=== PATIENT | female | born 1960 ===

== ENCOUNTER 2017-10-23 22:23 | Emergency (ER) | payer BC ==
[2017-10-23 22:24] VITALS: BMI 26.9
[2017-10-23 22:36] VITALS: TEMP 98.1; O2SAT 100
[2017-10-23 22:48] VITALS: BP 148/79; PULSE 82; RESP 20
--- NOTE | 2017-10-23 22:49 | C.PDOC ---
History Of Present Illness 57yo female, presents to ED for evaluation of acute on chronic neck and trapezius pain. She also reports feeling anxious and "scared" due to the pain. Patient states she took Motrin for her pain with relief of symptoms. She denies any chest pain, shortness of breath, and offers no other complaints. Time Seen by Provider: 10/23/17 22:43 Chief Complaint (Nursing): Chest Pain History Per: Patient Onset/Duration Of Symptoms: Days Current Symptoms Are (Timing): Still Present Quality: "Pain" Past Medical History Reviewed: Historical Data, Nursing Documentation, Vital Signs Vital Signs: Last Vital Signs Temp 98.1 F 10/23/17 22:28 Pulse 82 10/23/17 22:47 Resp 20 10/23/17 22:47 BP 148/79 10/23/17 22:47 Pulse Ox 100 10/23/17 22:49 - Medical History PMH: Arthritis (cervical area), Asthma, HTN Surgical History: No Surg Hx Family History: States: No Known Family Hx - Social History Hx Alcohol Use: No Hx Substance Use: No - Immunization History Hx Influenza Vaccination: No Hx Pneumococcal Vaccination: No Review Of Systems Except As Marked, All Systems Reviewed And Found Negative. Constitutional: Negative for: Fever, Chills Cardiovascular: Positive for: Other (neck and trapezius pain). Negative for: Chest Pain Respiratory: Negative for: Shortness of Breath Physical Exam - Physical Exam Appears: Non-toxic, No Acute Distress Skin: Warm, Dry Head: Atraumatic, Normacephalic Eye(s): bilateral: Normal Inspection, PERRL, EOMI Neck: Normal ROM, Supple Chest: Symmetrical Cardiovascular: Rhythm Regular Respiratory: Normal Breath Sounds, No Wheezing Gastrointestinal/Abdominal: Soft Back: Normal Inspection, Other (bilateral trapezius tenderness) Extremity: Normal ROM Neurological/Psych: Oriented x3 ED Course And Treatment O2 Sat by Pulse Oximetry: 100 (RA) Pulse Ox Interpretation: Normal Medical Decision Making Medical Decision Making: acute on chronic neck/trapezius discomfort, resolved with motrin normal exam and s/s resolved. NO s/s of CVA/stroke. more likely panic/anxiety (h/o same) Disposition Doctor Will See Patient In The: Office Counseled Patient/Family Regarding: Studies Performed, Diagnosis - Disposition Referrals: Ben Alcantar DO [Staff Provider] - Disposition: HOME/ ROUTINE Disposition Time: 22:49 Condition: GOOD Additional Instructions: continue motrin/ice packs as needed follow-up w Dr. Alcantar as needed. EKG normal. Instructions: Anxiety, Adult (DC), Muscle Spasms (DC) Forms: [employer] [facility] (Yi) - Clinical Impression Clinical Impression: Muscle spasm, Anxiety - Scribe Statement The provider has reviewed the documentation as recorded by the Scribe (Kaylie Herrera) Provider Attestation: All medical record entries made by the Scribe were at my direction and personally dictated by me. I have reviewed the chart and agree that the record accurately reflects my personal performance of the history, physical exam, medical decision making, and the department course for this patient. I have also personally directed, reviewed, and agree with the discharge instructions and disposition.
--- NOTE | 2017-10-24 18:15 | CARD ---
APPROVED REPORT EKG Measurement Heart [id number] <Conclusion> Normal sinus rhythm Normal ECG
== END 2017-10-23 23:07 | disposition home or self-care (01) ==
LOC: C.ER 22:23
DX: M62.838 Other muscle spasm (principal); F41.9 Anxiety disorder, unspecified